=== PATIENT | male | born 1955 | race Caucasian/White ===

== ENCOUNTER → 2016-03-30 | Outpatient (CLI) | payer SELFPAY | LOC: YCFC.O 09:59 | PROVIDERS: ATTEND Nurse Practitioner Family | DX: I50.9 Heart failure, unspecified (principal) ==

== ENCOUNTER → 2016-04-20 | Outpatient (CLI) | payer SELFPAY | LOC: LAB.O 08:44 | PROVIDERS: ATTEND Internal Medicine Interventional Cardiology | DX: I10 Essential (primary) hypertension (principal); I50.20 Unspecified systolic (congestive) heart failure; F15.10 Other stimulant abuse, uncomplicated; E11.9 Type 2 diabetes mellitus without complications; Z01.812 Encounter for preprocedural laboratory examination ==

== ENCOUNTER → 2017-01-26 | Outpatient (CLI) | payer BC | END | disposition home or self-care (01) | LOC: LAB.O 09:55 | PROVIDERS: ATTEND General Practice | DX: R31.9 Hematuria, unspecified (principal) ==

== ENCOUNTER → 2017-04-15 | Outpatient (CLI) | payer BC ==
--- NOTE | 2017-04-18 00:26 | US ---
Procedure: US ABDOMEN Exam Date: 04/15/2017 Ordering Provider: Paul Rodrigues Clinical Indication: HEMATURIA Comparison: None Technique: Real-time ultrasonography was obtained over the abdominal viscera and lead customer service representative images were recorded. Findings: The liver is normal in size and contour. There is diffuse increased echogenicity of the liver consistent with fatty infiltration. There are no intrahepatic masses. There is no intrahepatic ductal dilatation. The gallbladder is normal in size and appearance. There are no gallstones. There is no gallbladder wall thickening or pericholecystic fluid. The extrahepatic common duct is normal in size measuring 5.7 mm. The spleen is normal in size and contour. There is normal internal echogenicity of the spleen. There are no splenic masses. The visualized portions of the pancreas are normal. The aorta has a normal appearance. The inferior vena cava has a normal appearance. The right kidney is normal in size and contour. The right kidney measures 10.1 cm in bipolar length. Cortical thickness and echogenicity are normal. There are no masses, calculi, or hydronephrosis. The left kidney is normal in size and contour. The left kidney measures 9.2 cm in bipolar length. Cortical thickness and echogenicity are normal. There are no masses, calculi, or hydronephrosis. There is no ascites. Impression: 1. Hepatic steatosis, otherwise unremarkable exam. Electronically signed by: Tray Valdez MD 04/18/2017 12:25 AM [facility]
== END ==
LOC: US 08:36
PROVIDERS: ATTEND General Practice
DX: R31.0 Gross hematuria (principal); K76.0 Fatty (change of) liver, not elsewhere classified

== ENCOUNTER → 2017-05-25 | Outpatient (CLI) | payer BC | LOC: LAB.O 18:07 | PROVIDERS: ATTEND General Practice | DX: I10 Essential (primary) hypertension (principal); Z79.01 Long term (current) use of anticoagulants ==